=== PATIENT | male | born 1945 ===

== ENCOUNTER → 2019-01-20 20:57 | Outpatient (ROUT) | payer MEDICARE, BC, SELFPAY ==
[2019-01-20 21:38] LABS: Alanine Aminotransferase 36 IU/L (21-72); Albumin 3.7 g/dL (3.5-5.0); Albumin Globulin Ratio 1.8 (1.0-2.8); Alkaline Phosphatase 38 U/L (38-126); Aspartate Aminotransferase 35 IU/L (17-59); BUN Creatinine Ratio 33.3 (6-22); Bilirubin Total 0.4 mg/dL (0.2-1.3); Blood Urea Nitrogen 20 mg/dL (9-20); Calcium 8.3 mg/dL (8.4-10.2); Carbon Dioxide 26 mmol/L (22-32); Chloride 94 mmol/L (98-107); Estimated Glomerular Filt Rate > 60.0 mL/min (>60); Globulin 2.1 g/dL (1.7-4.1); Glucose 91 mg/dL (80-110); HEMOLYSIS < 15 (0-50); Potassium 4.5 mmol/L (3.4-5.1); Sodium 130 mmol/L (137-145); Total Protein 5.8 g/dL (6.3-8.2)
[2019-01-20 21:49] LABS: Mean Corpuscular HGB Conc 32.6 % (30-36); Mean Corpuscular Hemoglobin 29.8 PG (26-34); Mean Corpuscular Volume 91.4 fL (80-100); Platelet Count 217 X10^3/uL (150-400); Red Blood Cell Count 4.38 X10^6/uL (4.5-5.9); White Blood Cell Count 10.5 X10^3/uL (4.5-11.0)
[2019-01-20 21:50] LABS: Add Manual Diff / Slide Review YES
[2019-01-20 22:14] LABS: Anisocytosis 1+; Neutrophils Absolute Manual 9345 /uL (3000-5900); Total Cells Counted 100
[2019-01-20 22:35] LABS: B Type Natriuretic Peptide < 100 (<100)
== END ==
PROVIDERS: Visit Provider Family Medicine
DX: R60.0 Localized edema (principal); I48.2 Chronic atrial fibrillation; C85.98 Non-Hodgkin lymphoma, unspecified, lymph nodes of multiple sites
CPT/HCPCS: 36415; 80053; 83880; 85025